=== PATIENT | female | born 1960 | race Caucasian/White ===

== ENCOUNTER → 2017-03-02 | Outpatient (CLI) | payer OTHER | END | disposition home or self-care (01) | LOC: LABPAT 14:20 | PROVIDERS: ATTEND Orthopaedic Surgery | DX: Z01.812 Encounter for preprocedural laboratory examination (principal) | CPT/HCPCS: 87070 ==

== ENCOUNTER → 2017-03-08 | Outpatient (CLI) | payer OTHER ==
--- NOTE | 2017-03-08 08:37 | XR ---
EXAMINATION TYPE: XR chest 2V DATE OF EXAM: 03/08/2017 COMPARISON: Prior chest x-ray September 21, 2015. HISTORY: Presurgical study, history of asthma. TECHNIQUE: Frontal and lateral views of the chest are obtained. FINDINGS: There is no focal air space opacity, pleural effusion, or pneumothorax seen. The cardiac silhouette size is within normal limits. The osseous structures are intact. Cholecystectomy clips a re redemonstrated. IMPRESSION: No acute cardiopulmonary process currently.
== END | disposition home or self-care (01) ==
LOC: RADXRMAIN 08:12
PROVIDERS: ATTEND Physician Assistant Medical
DX: Z01.818 Encounter for other preprocedural examination (principal); J45.909 Unspecified asthma, uncomplicated
CPT/HCPCS: 71020

== ENCOUNTER 2017-03-21 06:23 | Inpatient (IN) | payer OTHER ==
[2017-03-14 11:12] VITALS: BMI 30.4
--- NOTE | 2017-03-20 10:14 | HP ---
HISTORY AND PHYSICAL CHIEF COMPLAINT: Left knee pain. 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 She denies any specific injury. She is having giving way sensations along with pain at night. She is having difficult time with stairs and normal activities. She has tried medications and injections with only partial temporary relief. PAST MEDICAL HISTORY: Significant for asthma, migraines, hypothyroidism, diabetes. PAST SURGICAL HISTORY: Significant for previous right ankle surgery, hysterectomy, and tonsillectomy. She notes she did have transient atrial fibrillation after her previous surgery. CURRENT ALLERGIES: Ultram and ibuprofen. ALLERGIES: She notes sensitivity to codeine, however, no sandi drug allergies. FAMILY HISTORY: Significant for dementia. SOCIAL HISTORY: Negative for current tobacco or alcohol use. REVIEW OF SYSTEMS: Sixteen point review of systems otherwise reviewed and is noncontributory. PHYSICAL EXAMINATION: On examination, the patient is approximately 5 feet 11 inches, 221 pounds of endomorphic habitus. HEENT exam is nonfocal. Neck is supple. She has painless passive motion of her left hip. Straight leg raise is negative. Active motion left knee -8 to 120 degrees of flexion. She has a moderate effusion. She is tender about the medial joint line. Collaterals are stable, Donna's negative, Rafy's is equivocal. She has genu varum alignment. Her distal neurovascular exam appears to be intact in the left lower extremity. IMPRESSION: 1. Left knee severe medial and patellofemoral compartment osteoarthrosis. 2. Increased body mass index. 3. Dsh-mrxfkog-makimhtdh diabetes. 4. History of atrial fibrillation. RECOMMENDATIONS: I talked to the patient at length regarding her treatment options. At this point, she is having persistent pain secondary to osteoarthrosis despite conservative measures. After a thorough discussion, she opts to proceed with surgery. We will plan to proceed with left total knee arthroplasty. Risks and benefits were discussed at length in layman's terms. We will institute DVT prophylaxis postoperatively. The patient underwent preoperative medical evaluation by Dr. Geraldine Bates. MMJOVANNAL / ANALIN: [id number] /
[~2017-03-21 06:23] MED LIST: ACETAMINOPHEN TAB 500 MG TAB PO ONE; DEXAMETHASONE SOD PHOSPHATE 10 MG/ML 1 ML VIAL IV ONE; HYDROmorphone 0.5 MG/0.5 ML SYRINGE IVP PRN; MELOXICAM 7.5 MG TAB PO ONE; MIDAZOLAM 2 MG/2 ML VIAL IV PRN; ONDANSETRON 4 MG/2 ML VIAL IVP ONE; TRANEXAMIC ACID 1,000 MG in SODIUM CHLORIDE 0.9% 100 ML IVPB ONE; ceFAZolin 2 GM in SODIUM CHLORIDE 0.9% 100 ML IVPB ONE
[2017-03-21] MEDS: LACTATED RINGERS 1,000 ML IV SCH (07:07)
[2017-03-21] MEDS ORDERED: LIDOCAINE 1% 20 ML VIAL (10MG/ML) FOR IV START INTRADERMA ONE (07:07)
[2017-03-21 07:21] LABS: INR 1.1 (<1.2); Partial Thromboplastin Time 24.6 sec (22.0-30.0); Prothrombin Time 11.3 sec (9.0-12.0)
[2017-03-21] MEDS ORDERED: MIDAZOLAM 2 MG/2 ML VIAL IVP ONE (07:29)
[2017-03-21] MEDS ORDERED: SODIUM CHLORIDE 0.9% 100 ML BAG ONE (08:00)
[2017-03-21] MEDS ORDERED: fentaNYL (PF) 50 MCG/ML 2 ML AMP ONE (08:00)
[2017-03-21] MEDS ORDERED: HYDROmorphone (PF) 1 MG/ML ONE (08:00)
[2017-03-21] MEDS ORDERED: TRANEXAMIC ACID 1,000 MG/10 ML VIAL ONE (08:00)
[2017-03-21] MEDS ORDERED: PHENYLEPHRINE-0.9% NACL SYG 1 MG/10 ML SYRINGE ONE (08:00)
[2017-03-21] MEDS ORDERED: MIDAZOLAM 2 MG/2 ML VIAL ONE (08:00)
[2017-03-21] MEDS ORDERED: PROPOFOL 10 MG/ML 20 ML VIAL IV ONE (08:00)
[2017-03-21] MEDS ORDERED: ROPIVACAINE 246.25 MG, EPINEPHrine 0.5 MG, KETOROLAC 30 MG, cloNIDine HCL/PF 80 MCG, WA... MISCELLANE ONE ×5 (08:05)
[2017-03-21] MEDS ORDERED: ceFAZolin 3,000 MG in SODIUM CHLORIDE 0.9% IRRIGATIO 3,000 ML IRRIGATION ONE (08:37)
[2017-03-21] MEDS ORDERED: ROPIVACAINE 1,100 MG, SODIUM CHLORIDE 0.9% 330 ML MISCELLANE PRN ×2 (09:01)
--- NOTE | 2017-03-21 09:02 | P.ONQ ---
Anesthesiology Proc Note - PNB - Peripheral Nerve Block Performed Left Adductor Canal Indication: Acute Post-Operative Pain, Requested by physician (Dr Paulson) Sedation Type: Sedate with meaningful contact maintained Preparation: Sterile Dressing Position: Supine Catheter: Indwelling Needle Types: Other (see comment) (Neeta) Needle Size: 100mm (4") Needle Gauge: 18 Technique: Ultrasound Injectate: 0.5% Ropivacaine (see comment for volume) (20cc) Blood Aspirated: No Pain Paresthesia on Injection Noted: No Resistance on Injection: Normal Events: Uneventful and Well Tolerated
[2017-03-21] MEDS ORDERED: LACTATED RINGERS 1,000 ML IV ONE (09:12)
[2017-03-21] MEDS ORDERED: HYDROmorphone 0.5 MG/0.5 ML SYRINGE IVP PRN ×2 (09:42)
[2017-03-21] MEDS ORDERED: HYDROcodone/APAP 7.5-325MG 1 EACH TAB PO PRN (09:42)
[2017-03-21] MEDS ORDERED: NALOXONE 0.4 MG/ML 1 ML VIAL IV PRN (09:42)
[2017-03-21] MEDS ORDERED: MAGNESIUM HYDROXIDE 2,400 MG/10 ML CUP PO PRN (09:42)
[2017-03-21] MEDS ORDERED: HYDROmorphone 1 MG/ML 1 ML SYRINGE IVP PRN (09:42)
--- NOTE | 2017-03-21 10:09 | P.OP ---
Date of Procedure: 03/21/17 Preoperative Diagnosis: Left knee severe tricompartmental osteoarthrosis-primary Postoperative Diagnosis: Same Procedure(s) Performed: Left total knee arthroplasty-posterior stabilized-cemented Implants: Depuy Attune size 5 cemented femoral component, size 5 cemented tibial component , 12 mm articular surface, 32 mm cemented patellar component. This is a posterior stabilized implant. Anesthesia: regional, local, spinal Surgeon: Kike Paulson Rpg Programmer Analyst #1: Stepan Sheikh Estimated Blood Loss (ml): 50 Pathology: other (Bone fragments) Condition: stable Disposition: PACU Indications for Procedure: The patient's a 56-year-old female who presents with progressive left knee pain secondary to osteoarthrosis despite extensive conservative measures. A discussion of the risks and benefits of operative intervention versus continued conservative measures was made with patient. She opted to proceed with surgery. Operative risks to include infection, neurovascular injury, development of blood clots, possible component loosening, possible component failure need for subsequent procedures was discussed. Informed consent was obtained. Operative Findings: As below Description of Procedure: The patient was brought to the operating room, and after induction of spinal anesthesia the left lower extremity was prepped and draped in normal fashion. The tourniquet was inflated to 270 mmHg. A longitudinal incision extending 3 finger breaths above the superior pole of the patella extending to the medial aspect of the tibial tubercle was then made. The skin and subcutaneous tissues were divided sharply. A medial parapatellar arthrotomy was performed. The medial soft tissues to include the superficial and deep portions the medial collateral ligament as well as the medial hamstring tendons were elevated subperiosteally. The proximal medial tibial osteophytes were carefully removed. The patella was everted. A portion of the retropatellar fat pad was excised sharply. The knee was then flexed. The anterior cruciate ligament was sacrificed. A starting hole was made in the distal femur 1 cm anterior to the posterior cruciate ligament. An intramedullary femoral guide was gently inserted planning on 5 valgus distal cut with 9 mm distal resection. The cutting block was pinned in place. The distal cut was then made. The posterior referencing sizing guide was utilized. I felt size 5 was most appropriate. 3 of external rotation was built into the system and verified off the trans-epicondylar axis and the posterior condyles. The cutting block was pinned in place. The anterior, posterior, and chamfer cuts were then made. The bone fragments were removed. The box guide was utilized for the intercondylar notch. A reciprocating saw was used to remove the bone block. A size 5 femoral components placed and was fully seated. There is good anterior to posterior and medial to lateral fit. The distal peg holes were drilled. The trial component was removed. Attention was then paid towards preparing the proximal tibia. An extra medullary guide was utilized in line with the tibial shaft and second metatarsal distally. I planned on 2 mm resection from the medial compartment. The cutting block was pinned in place. The proximal tibial cut was then made. The bone was removed in one fragment. The tibia sized most appropriately at a size 5. The remnants of the medial lateral menisci were excised at the capsular junction with electrocautery. The trial tibial and femoral components were placed along with a 12 mm articular surface. I was able to obtain full flexion and extension with good stability with varus and valgus stress throughout the arc of motion. After several flexion and extension cycles, the tibial rotation was marked with electrocautery in line with the medial one third of the tibial tubercle. Attention was then paid towards preparing the patella. A patella reamer was utilized taking down to 14 mm of bone stock. A good flush cut was made. The patella sized most appropriately at a size 32. The peg holes were drilled. The trial components placed. The knee was taken through range of motion. I had good patellofemoral tracking with no hands technique. The trial components were then removed. The tibia was prepared in the appropriate rotation with appropriate drill and keel punch. The posterior osteophytes off the distal femur were carefully removed with a curved osteotome. The flexion and extension gaps were checked and felt to be symmetric. The posterior soft tissues were injected with ropivacaine. The bony surfaces were prepared with pulsatile lavage and dried. I did make several additional drill holes in the proximal medial tibia to facilitate cement interdigitation. The tibial component was then cemented in placed and was fully seated. Excess cement was removed. The femoral component was cemented place and was fully seated. Excess cement was removed. The trial 12 mm articular surface was placed and the knee was put in full extension. The patellar component cemented in place. After the cement had sufficiently hardened, the knee was again taken through range of motion and felt to be stable in flexion and extension with varus and valgus stress. The trial 12 mm articular surface was removed and the final one inserted. This was fully seated. Care was taken to avoid any soft tissue interposition. Pulsatile lavage was again utilized. A medial parapatellar arthrotomy was closed with #2 Ethibond suture. A deep drain was placed exiting laterally. The tourniquet was deflated with less than 70 minutes total tourniquet time. The subcutaneous tissues reapproximated interrupted 2-0 Vicryl sutures. The skin was reapproximated with coby. A sterile dressing was applied. The patient was awoken from sedation and transferred to the recovery room in good condition. Blood loss less than 50 mL. No complications were incurred. Sponge and needle counts were correct in the case.
--- NOTE | 2017-03-21 10:32 | XR ---
EXAMINATION TYPE: XR knee limited LT DATE OF EXAM: 03/21/2017 COMPARISON: NONE TECHNIQUE: Two views submitted HISTORY: Post op FINDINGS: There is a prosthetic knee in near anatomic alignment. There is soft tissue edema and emphysema. Bowden rgical drain noted. Surgical coby seen. IMPRESSION: 1. Postoperative change. Appears in near-anatomic alignment
[2017-03-21] MEDS ORDERED: ALBUTEROL NEBULIZED 2.5 MG/3 ML INHALATION PRN (14:38)
[2017-03-21] MEDS: HYDROcodone/APAP 7.5-325MG 1 EACH TAB PO PRN ×2 (14:50→22:18)
--- NOTE | 2017-03-21 16:23 | P.CONS ---
History of Present Illness - Reason for Consult COPD - History of Present Illness patient was admitted for left knee arthroplasty. Patient postsurgically clinically doing well without any chest pain, nausea, vomiting, abdominal pain, fever, dysuria patient still has Callahan catheter in place patient's just underwent surgery today morning. Patient does have history of COPD without any complaints of shortness of breath. Review of Systems REVIEW OF SYSTEMS: CONSTITUTIONAL: No fever, no malaise, no fatigue. HEENT: No recent visual problems or hearing problems. Denied any sore throat. CARDIOVASCULAR: No chest pain, orthopnea, PND, no palpitations, no syncope. PULMONARY: No shortness of breath, no cough, no hemoptysis. GASTROINTESTINAL: No diarrhea, no nausea, no vomiting, no abdominal pain. Normoactive bowel sounds. NEUROLOGICAL: No headaches, no weakness, no numbness. HEMATOLOGICAL: Denies any bleeding or petechiae. GENITOURINARY: Denies any burning micturition, frequency, or urgency. MUSCULOSKELETAL/RHEUMATOLOGICAL: Denies any joint pain, swelling, or any muscle pain. ENDOCRINE: Denies any polyuria or polydipsia. The rest of the 14-point review of systems is negative. Past Medical History Past Medical History: Atrial Fibrillation, Asthma, GERD/Reflux, Osteoarthritis ( OA), Pneumonia, Rheumatoid Arthritis (RA) Additional Past Medical History / Comment(s): hx seizures as infant, A-Fib "comes and goes" no rx for, History of Any Multi-Drug Resistant Organisms: None Reported Past Surgical History: Adenoidectomy, Cholecystectomy, Heart Catheterization, Hysterectomy, Orthopedic Surgery, Tonsillectomy Additional Past Surgical History / Comment(s): Rt ankle surgery, Past Anesthesia/Blood Transfusion Reactions: Previous Problems w/ Anesthesia Additional Past Anesthesia/Blood Transfusion Reaction / Comm: "ANESTHESIA SENDS ME INTO AFIB" with ankle surgery at [facility] Smoking Status: Never smoker - Past Family History Mother Family Medical History: No Reported History Father History Unknown: Yes Medications and Allergies Home Medications Medication Instructions Recorded Confirmed Type Albuterol Nebulized [Ventolin 2.5 mg INHALATION RT-Q6H PRN 09/15/15 03/21/17 History Nebulized] Budesonide-Formot 160-4.5 Mcg 1 puff INHALATION RT-BID PRN 03/14/17 03/21/17 History [Symbicort 160-4.5 Mcg Inhaler] Esomeprazole Magnesium [NexIUM 20 mg PO QAM 03/14/17 03/21/17 History 24Hr] Ibuprofen [Motrin] 800 mg PO DAILY PRN 03/14/17 03/21/17 History Rivaroxaban [Xarelto] 10 mg PO DAILY #12 tab 03/21/17 Rx Allergies Allergy/AdvReac Type Severity Reaction Status Date / Time adhesive tape Allergy red skin Verified 03/21/17 14:01 codeine Allergy NUMBNESS Verified 03/21/17 14:01 of arms latex Allergy red skin Verified 03/21/17 14:01 Physical Exam Vitals: Vital Signs Temp Pulse Resp BP Pulse Ox 03/21/17 15:00 97.9 F 93 16 100/67 98 03/21/17 13:05 97.7 F 79 14 102/59 95 03/21/17 12:37 93 16 107/65 99 03/21/17 12:02 87 16 110/68 98 03/21/17 11:33 89 16 112/66 96 03/21/17 11:15 89 16 112/69 96 03/21/17 11:00 82 16 113/70 98 03/21/17 10:45 84 16 107/68 95 03/21/17 10:33 86 16 108/66 100 03/21/17 10:15 86 16 104/63 98 03/21/17 10:00 97.5 F L 90 20 106/58 96 03/21/17 07:08 98.6 F 90 18 101/68 96 Intake and Output 03/21/17 03/21/17 03/21/17 06:59 14:59 22:59 Intake Total 1851 Output Total 450 Balance 1401 Intake: IV 1701 Intake, IV Titration 150 Amount Lactated Ringers 1,000 ml 150 @ 50 mls/hr IV .Q20H [facility] Rx#:[id number] Output: Urine 400 Estimated Blood Loss 50 Other: Voiding Method Indwelling Catheter PHYSICAL EXAMINATION: GENERAL: The patient is alert and oriented x3, not in any acute distress. Well developed, well nourished. HEENT: Pupils are round and equally reacting to light. EOMI. No scleral icterus. No conjunctival pallor. Normocephalic, atraumatic. No pharyngeal erythema. No thyromegaly. CARDIOVASCULAR: S1 and S2 present. No murmurs, rubs, or gallops. PULMONARY: Chest is clear to auscultation, no wheezing or crackles. ABDOMEN: Soft, nontender, nondistended, normoactive bowel sounds. No palpable organomegaly. MUSCULOSKELETAL: No joint swelling or deformity. EXTREMITIES: No cyanosis, clubbing, or pedal edema. NEUROLOGICAL: Gross neurological examination did not reveal any focal deficits. SKIN: No rashes. Assessment and Plan Plan: #1 COPD: Patient is not in acute exacerbation patient will continued on since Symbicort albuterol and ipratropium. #2 status post left knee arthroplasty: Pain management and DVT prophylaxis as per primary service. #3gastroesophageal reflux disease Will use Pepcid for that #4 rheumatoid arthritis
[2017-03-21] MEDS: traMADol 50 MG TAB PO SCH ×3 (16:27→22:14)
[2017-03-21] MEDS: ceFAZolin 2 GM in SODIUM CHLORIDE 0.9% 100 ML IVPB SCH (16:28)
[2017-03-21] MEDS: ONDANSETRON 4 MG/2 ML VIAL IVP PRN (17:44)
[2017-03-21] MEDS: SYMBICORT 160-4.5 MCG INHALER INHALATION SCH (21:49)
[2017-03-21] MEDS: SENNOSIDES-DOCUSATE SODIUM 1 EACH TAB PO SCH (22:14)
[2017-03-22] MEDS: ceFAZolin 2 GM in SODIUM CHLORIDE 0.9% 100 ML IVPB SCH (00:01)
[2017-03-22] MEDS: LACTATED RINGERS 1,000 ML IV SCH (03:57)
[2017-03-22] MEDS: HYDROcodone/APAP 7.5-325MG 1 EACH TAB PO PRN (06:19)
[2017-03-22 06:58] LABS: Basophils % (A) 0 %; CH 32.1; CHCM 34.3; Eosinophils % (A) 0 %; HCT 35.5 % (34.0-46.0); HDW 2.96; HGB 11.7 gm/dL (11.4-16.0); Luc # (Auto) 0.09; Luc % (Auto) 1; Lymphocytes # (A) 1.4 k/uL (1.0-4.8); Lymphocytes % (A) 11 %; MCH 30.9 pg (25.0-35.0); MCHC 32.9 g/dL (31.0-37.0); MCV 94.1 fL (80.0-100.0); Mean Platelet Volume 6.8; Monocytes # (A) 0.6 k/uL (0-1.0); Monocytes % (A) 5 %; Neutrophils # (A) 10.1 k/uL (1.3-7.7); Neutrophils % (A) 83 %; RBC 3.78 m/uL (3.80-5.40); RDW 13.9 % (11.5-15.5); WBC 12.1 k/uL (3.8-10.6); WBC (Perox) 13.12
[2017-03-22] MEDS: SYMBICORT 160-4.5 MCG INHALER INHALATION SCH ×2 (07:28→19:39)
[2017-03-22] MEDS: FAMOTIDINE 20 MG TAB PO SCH (07:55)
[2017-03-22] MEDS: traMADol 50 MG TAB PO SCH ×4 (07:56→22:21)
[2017-03-22] MEDS: RIVAROXABAN 10 MG TAB PO SCH (07:56)
[2017-03-22] MEDS ORDERED: ESOMEPRAZOLE MAGNESIUM 20 MG PO SCH (09:00)
[2017-03-22] MEDS: ONDANSETRON 4 MG/2 ML VIAL IVP PRN (09:11)
--- NOTE | 2017-03-22 12:22 | P.PN ---
Subjective Progress Note Date: 03/22/17 Principal diagnosis: patient seen today resting in her hospital chair. She appears comfortable. She does state she's had a little bit of nausea this morning, she did receive some IV pain medication along with oral pain medication. She did ambulate with therapy. She denies any headaches, lightheadedness, chest pain, shortness of breath, fever or chills. Objective - Vital Signs Vital signs: Vital Signs Temp 97.7 F 03/22/17 07:03 Pulse 67 03/22/17 07:03 Resp 16 03/22/17 07:03 BP 93/60 03/22/17 07:03 Pulse Ox 96 03/22/17 07:03 Intake & Output 03/21/17 03/22/17 03/22/17 18:59 06:59 18:59 Intake Total 1851 1375 Output Total 700 250 300 Balance 1151 1125 -300 Intake: IV 1701 Intake, IV Titration 150 875 Amount Lactated Ringers 1,000 ml 150 575 @ 50 mls/hr IV .Q20H [facility] Rx#:[id number] ceFAZolin 2 gm In Sodium 100 Chloride 0.9% 100 ml @ 100 mls/hr IVPB ONCE ONE Rx#:[id number] ceFAZolin 2 gm In Sodium 200 Chloride 0.9% 100 ml @ 100 mls/hr IVPB Q8HR [facility] Rx#:[id number] Oral 500 Output: Drainage 50 250 Left Knee 50 250 Urine 600 300 Uretheral (Callahan) 300 Estimated Blood Loss 50 Other: Voiding Method Indwelling Catheter Indwelling Catheter Indwelling Catheter - Exam Left lower extremity: Incision is clean, dry, and intact. [place] are in good position. There is minimal soft tissue swelling and ecchymosis surrounding the medial and lateral aspects of the incision. Calf is soft, no tenderness with palpation. Plantar flexion, dorsiflexion, EHL, FHL are intact. Sensory exam to light touch throughout the extremity is intact, dorsal pedis pulses 2+. - Labs CBC & Chem 7: 03/22/17 06:27 Labs: Abnormal Lab Results - Last 24 Hours (Table) 03/22/17 Range/Units 06:27 WBC 12.1 H (3.8-10.6) k/uL RBC 3.78 L (3.80-5.40) m/uL Neutrophils # 10.1 H (1.3-7.7) k/uL Assessment and Plan Plan: Assessment: 1. Postop day #1 status post left total knee arthroplasty Plan 1. Pain control, continues oral medication. Utilize lower dose medication at this time to help prevent nausea 2. Continue therapy and use of CPM 3. Daily dressing changes/ice and elevate 4. Encourage incentive spirometer 5. GI and DVT prophylaxis, continue Xarelto 10 mg 6. Medical recommendations 7. Discharge planning: Patient likely be discharged home tomorrow Time with Patient: Less than 30
[2017-03-22] MEDS: ACETAMINOPHEN TAB 325 MG TAB PO PRN ×2 (14:05→19:45)
[2017-03-22] MEDS: SENNOSIDES-DOCUSATE SODIUM 1 EACH TAB PO SCH (22:22)
[2017-03-23] MEDS: ACETAMINOPHEN TAB 325 MG TAB PO PRN ×6 (01:34→22:27)
[2017-03-23] MEDS: LACTATED RINGERS 1,000 ML IV SCH ×2 (07:13→13:33)
[2017-03-23] MEDS: SYMBICORT 160-4.5 MCG INHALER INHALATION SCH ×2 (07:47→19:21)
[2017-03-23] MEDS: RIVAROXABAN 10 MG TAB PO SCH (08:31)
[2017-03-23] MEDS: traMADol 50 MG TAB PO SCH ×4 (08:31→21:04)
[2017-03-23] MEDS: FAMOTIDINE 20 MG TAB PO SCH (08:31)
--- NOTE | 2017-03-23 11:06 | P.PN ---
Subjective Progress Note Date: 03/23/17 Principal diagnosis: patient seen today resting in her hospital chair. She appears comfortable. Patient states that the nausea is much improved today. She denies any headaches , lightheadedness, chest pain, shortness of breath, fever or chills. Objective - Vital Signs Vital signs: Vital Signs Temp 98.3 F 03/23/17 07:00 Pulse 88 03/23/17 07:00 Resp 16 03/23/17 07:00 BP 98/59 03/23/17 07:00 Pulse Ox 90 L 03/23/17 07:00 Intake & Output 03/22/17 03/23/17 03/23/17 18:59 06:59 18:59 Intake Total 1380 1840 Output Total 700 900 Balance 680 940 Intake: Intake, IV Titration 900 400 Amount Lactated Ringers 1,000 ml 900 400 @ 50 mls/hr IV .Q20H [facility] Rx#:[id number] Oral 480 1440 Output: Urine 700 900 Uretheral (Callahan) 300 Other: Voiding Method Toilet Toilet # Voids 1 2 - Exam Left lower extremity: Incision is clean, dry, and intact. [place] are in good position. There is minimal soft tissue swelling and ecchymosis surrounding the medial and lateral aspects of the incision. Calf is soft, no tenderness with palpation. Plantar flexion, dorsiflexion, EHL, FHL are intact. Sensory exam to light touch throughout the extremity is intact, dorsal pedis pulses 2+. - Labs CBC & Chem 7: 03/22/17 06:27 Assessment and Plan Plan: Assessment: 1. Postop day #2 status post left total knee arthroplasty Plan 1. Pain control, continue current regimen 2. Continue therapy and use of CPM 3. Daily dressing changes/ice and elevate 4. Encourage incentive spirometer 5. GI and DVT prophylaxis, continue Xarelto 10 mg 6. Medical recommendations 7. Discharge planning: we'll discharge home tomorrow Time with Patient: Less than 30
--- NOTE | 2017-03-23 17:15 | XR ---
EXAMINATION TYPE: XR chest 1V DATE OF EXAM: 03/23/2017 HISTORY: sob. REFERENCE: Previous study dated 03/08/2017. FINDINGS: There is atelectatic change in the right midlung. Lungs otherwise clear. Pleural spaces are clear. The heart is not enlarged. IMPRESSION: PLATELIKE ATELECTASIS, RIGHT MIDLUNG.
[2017-03-23] MEDS: SENNOSIDES-DOCUSATE SODIUM 1 EACH TAB PO SCH (21:05)
[2017-03-23 22:13] VITALS: RESP 17
[2017-03-24] MEDS: ACETAMINOPHEN TAB 325 MG TAB PO PRN ×2 (03:35→06:35)
[2017-03-24 07:07] VITALS: BP 108/66; PULSE 78; TEMP 97
[2017-03-24 07:19] LABS: Basophils % (A) 1 %; CH 31.4; CHCM 33.1; Eosinophils # (A) 0.1 k/uL (0-0.7); Eosinophils % (A) 2 %; HCT 36.7 % (34.0-46.0); HDW 3.07; HGB 12.1 gm/dL (11.4-16.0); Luc # (Auto) 0.18; Luc % (Auto) 2; Lymphocytes % (A) 25 %; MCH 31.6 pg (25.0-35.0); MCHC 33.1 g/dL (31.0-37.0); MCV 95.7 fL (80.0-100.0); Mean Platelet Volume 6.5; Monocytes # (A) 0.6 k/uL (0-1.0); Monocytes % (A) 7 %; Neutrophils # (A) 5.3 k/uL (1.3-7.7); Neutrophils % (A) 64 %; RBC 3.84 m/uL (3.80-5.40); RDW 13.7 % (11.5-15.5); WBC 8.3 k/uL (3.8-10.6)
[2017-03-24] MEDS: SYMBICORT 160-4.5 MCG INHALER INHALATION SCH (07:49)
--- NOTE | 2017-03-24 08:10 | P.PN ---
Subjective Progress Note Date: 03/24/17 Principal diagnosis: Status post left total knee arthroplasty patient seen today resting in her hospital chair. She appears comfortable. Patient states that the nausea is much improved today. She denies any headaches , lightheadedness, chest pain, shortness of breath, fever or chills Objective - Vital Signs Vital signs: Vital Signs Temp 97.0 F L 03/24/17 07:06 Pulse 78 03/24/17 07:06 Resp 17 03/24/17 07:09 BP 108/66 03/24/17 07:06 Pulse Ox 97 03/24/17 07:06 Intake & Output 03/23/17 03/24/17 03/24/17 18:59 06:59 18:59 Intake Total 237 250 Output Total 600 Balance 237 -350 Intake: Oral 237 250 Output: Urine 600 Other: Voiding Method Toilet Toilet # Voids 1 1 - Exam Left lower extremity: Incision is clean, dry, and intact. [place] are in good position. There is minimal soft tissue swelling and ecchymosis surrounding the medial and lateral aspects of the incision. Calf is soft, no tenderness with palpation. Plantar flexion, dorsiflexion, EHL, FHL are intact. Sensory exam to light touch throughout the extremity is intact, dorsal pedis pulses 2+. - Labs CBC & Chem 7: 03/24/17 06:53 Assessment and Plan Plan: Assessment: 1. Postop day #3 status post left total knee arthroplasty Plan 1. Pain control, continue current regimen 2. Continue therapy and use of CPM 3. Daily dressing changes/ice and elevate 4. Encourage incentive spirometer 5. GI and DVT prophylaxis, continue Xarelto 10 mg 6. Medical recommendations 7. Discharge planning: Patient will be discharged home today Time with Patient: Less than 30
[2017-03-24] MEDS: traMADol 50 MG TAB PO SCH (08:12)
[2017-03-24] MEDS: LACTATED RINGERS 1,000 ML IV SCH (08:13)
[2017-03-24] MEDS: FAMOTIDINE 20 MG TAB PO SCH (08:13)
[2017-03-24] MEDS: RIVAROXABAN 10 MG TAB PO SCH (08:13)
--- NOTE | 2017-03-24 08:14 | P.DS ---
Providers Date of admission: 03/21/17 06:23 Expected date of discharge: 03/24/17 Attending physician: Kike Paulson Consults: 03/21/17 09:42 Consult Physician Routine Consulting Provider: Blaine Perez Consult Reason/Comments: Medical Management Do you want consulting provider notified?: Yes Primary care physician: Geraldine Bates [facility] Course: Date of admission: 03/21/2017 Date of discharge: 03/24/2017 Admission diagnosis: Status post left total knee arthroplasty Discharge diagnosis: Same Attending physician: Dr. Paulson Surgical procedures: Left total knee arthroplasty Brief history: Patient is a 56-year-old female with a history of with progressive primary left knee osteoarthritis. At this point patient has failed conservative treatment measures and has opted to proceed with a elective left total knee arthroplasty. Hospital course: Details of patient's surgery can be found in operative report. Patient tolerated the procedure well and was subsequently transported to orthopedic floor. Patient's orthopeidc and medical care was provided daily. Patient had daily laboratory tests performed for evaluation of overall blood counts. Patient had daily physical therapy to include strengthening range of motion as well as education with walker ambulation. [Patient had daily CPM usage as part of their physical therapy program.] Patient was treated with [ Xarelto] for their postoperative DVT prophylaxis during their inpatient stay. Patient was noted to have a relatively uneventful postoperative course. Patient reported satisfactory pain control with oral pain medications by postoperative day 0. Patient showed satisfactory progress with physical therapy. Patient moved steadily through the program and had no difficulty meeting the goals by postoperative day 3. Given patient's otherwise satisfactory course and having met physical therapy goals, plan is to discharge patient rehab on postoperative day 3. Discharge condition/disposition: Patient will be discharged [home] in stable condition. Discharge medications: Instructions are given on resumption of patient's normal daily medications per primary care recommendation, in addition patient will be prescribed tramadol 50 mg, Tylenol 650 mg, Pepcid 20 mg, Colace 100mg Discharge instructions: 1. Wound care and infection precautions, [keep incision dry and covered while showering], no lotions, creams, moisturizers. No soaking, tubs, pools, hottubs. Do not scrub over the incision. 2. Weight-bear [as tolerated] with walker / cane until follow-up. 3. Ice and elevate when necessary. Do not exceed 20 minutes per hour with ice pack. 4. Utilize compression sleeve until seen at first follow up appointment. 5. Visiting nursing care. 6. Home physical therapy [including home CPM]. 7. Pain meds and anticoagulants per prescription. 8. Pain medication has potential to cause constipation. Increase oral fluid and fiber intake. Contact primary care provider if you have not had a bowel movement within 48 hours after discharge 9. No anti-inflammatory medication until discussed at first post operative visit, this including Motrin, Aleve, Mobic, Diclofenac. 10. Follow up in office at 2 weeks postop with Eric Sheikh PA-C 11. Follow up with your primary care doctor 7-10 days after discharge. 12. Contact [facility] with any questions, . Procedures: Left total knee arthroplasty Patient Condition at Discharge: Good Plan - Discharge Summary New Discharge Prescriptions: New Rivaroxaban [Xarelto] 10 mg PO DAILY #12 tab No Action Albuterol Nebulized [Ventolin Nebulized] 2.5 mg INHALATION RT-Q6H PRN PRN Reason: Shortness Of Breath Budesonide-Formot 160-4.5 Mcg [Symbicort 160-4.5 Mcg Inhaler] 1 puff INHALATION RT-BID PRN PRN Reason: Shortness Of Breath Ibuprofen [Motrin] 800 mg PO DAILY PRN PRN Reason: Pain Esomeprazole Magnesium [NexIUM 24Hr] 20 mg PO QAM Discharge Medication List Albuterol Nebulized [Ventolin Nebulized] 2.5 mg INHALATION RT-Q6H PRN 09/15/15 [ History] Budesonide-Formot 160-4.5 Mcg [Symbicort 160-4.5 Mcg Inhaler] 1 puff INHALATION RT-BID PRN 03/14/17 [History] Esomeprazole Magnesium [NexIUM 24Hr] 20 mg PO QAM 03/14/17 [History] Rivaroxaban [Xarelto] 10 mg PO DAILY #12 tab 03/21/17 [Rx] Follow up Appointment(s)/Referral(s): No[facility], [NON-STAFF] - Stepan Sheikh, PAC [PHYSICIAN JEWELRY INSPECTOR] - 2 Weeks Activity/Diet/Wound Care/Special Instructions: CPM Through [facility] [phone]. Orthopedic Discharge Instructions: 1. Wound care and infection precautions, keep incision dry and covered while showering, no lotions, creams, moisturizers. No soaking, pools, hot tubs. Do not scrub over incision. 2. Weight-bear as tolerated with walker / cane until follow-up. 3. Ice and elevate when necessary. Do not exceed 20 minutes per hour with ice pack. 4. Utilize compression sleeve until seen at first follow up appointment. 5. Visiting nursing care. 6. Home physical therapy including home CPM. 7. Pain meds and anticoagulants per prescription. 8. Pain medication has potential to cause constipation. Increase oral fluid and fiber intake. Contact primary care provider if you have not had a bowel movement within 48 hours after discharge. 9. No anti-inflammatory medication until discussed at first post operative visit, this including Motrin, Aleve, Mobic, Diclofenac. 10. Follow up in office at 2 weeks postop with Eric Sheikh PA-C 11. Follow up with your primary care doctor 7-10 days after discharge. 12. Contact [facility] with any questions, . Discharge Disposition: HOME WITH HOME HEALTH SERVICES
--- NOTE | 2017-03-24 15:30 | P.PN ---
Subjective Patient is clinically doing well and is being discharged patient is medically stable to discharged. Objective - Vital Signs Vital signs: Vital Signs Temp 97.0 F L 03/24/17 07:06 Pulse 78 03/24/17 07:06 Resp 17 03/24/17 07:09 BP 108/66 03/24/17 07:06 Pulse Ox 97 03/24/17 07:06 Intake & Output 03/23/17 03/24/17 03/24/17 18:59 06:59 18:59 Intake Total 237 250 480 Output Total 600 Balance 237 -350 480 Intake: Oral 237 250 480 Output: Urine 600 Other: Voiding Method Toilet Toilet # Voids 1 1 1 - Exam PHYSICAL EXAMINATION: GENERAL: The patient is alert and oriented x3, not in any acute distress. Well developed, well nourished. HEENT: Pupils are round and equally reacting to light. EOMI. No scleral icterus. No conjunctival pallor. Normocephalic, atraumatic. No pharyngeal erythema. No thyromegaly. CARDIOVASCULAR: S1 and S2 present. No murmurs, rubs, or gallops. PULMONARY: Chest is clear to auscultation, no wheezing or crackles. ABDOMEN: Soft, nontender, nondistended, normoactive bowel sounds. No palpable organomegaly. MUSCULOSKELETAL: No joint swelling or deformity. EXTREMITIES: No cyanosis, clubbing, or pedal edema. NEUROLOGICAL: Gross neurological examination did not reveal any focal deficits. SKIN: No rashes. - Labs CBC & Chem 7: 03/24/17 06:53 Assessment and Plan Plan: #1 COPD: Patient is not in acute exacerbation patient will continued on since Symbicort albuterol and ipratropium. #2 status post left knee arthroplasty: Pain management as per primary service and patient is on anti-correlation for DVT prophylaxis no further recommendations for medicine perspective. #3gastroesophageal reflux disease Will use Pepcid for that #4 rheumatoid arthritis
== END 2017-03-24 12:00 | disposition home health service (06) | DRG 470 ==
LOC: 2ORMAIN 06:23 → EDSTATUS 08:00 → 3SUR 12:35
PROVIDERS: ADMIT Orthopaedic Surgery; ATTEND Orthopaedic Surgery
PROC: 0SRD0J9 Replacement of Left Knee Joint with Synthetic Substitute, Cemented, Open Approach (ICD-10-PCS; principal; 2017-03-21 08:00)
DX: M17.12 Unilateral primary osteoarthritis, left knee (principal); M06.9 Rheumatoid arthritis, unspecified; I48.91 Unspecified atrial fibrillation; E03.9 Hypothyroidism, unspecified; E11.9 Type 2 diabetes mellitus without complications; J44.9 Chronic obstructive pulmonary disease, unspecified; K21.9 Gastro-esophageal reflux disease without esophagitis; Z79.01 Long term (current) use of anticoagulants; Z79.51 Long term (current) use of inhaled steroids; Z79.84 Long term (current) use of oral hypoglycemic drugs; Z91.040 Latex allergy status; Z88.5 Allergy status to narcotic agent; Z88.6 Allergy status to analgesic agent; M21.162 Varus deformity, not elsewhere classified, left knee
CPT/HCPCS: 71010; 85025; 85610; 85730; 88300; 94640

== ENCOUNTER → 2022-09-07 | Outpatient (CLI) | payer OTHER ==
--- NOTE | 2022-09-07 11:19 | CT ---
EXAMINATION TYPE: CT angio chest DATE OF EXAM: 09/07/2022 COMPARISON: CTA chest September 15, 2015. Same day outside chest x-ray. HISTORY: PE. Shortness of breath. CT DLP: 329.9 mGycm. Automated Exposure Control for Dose Reduction was Utilized. CONTRAST: CTA scan of the thorax is performed with IV Contrast, patient injected with 70 mL of Isovue 370, pulm onary embolism protocol. MIP Images are created on CT scanner and reviewed. FINDINGS: LUNGS: There is dependent atelectasis. No suspicious focal consolidation. No pleural effusion or pneu mothorax. Slightly elevated right hemidiaphragm. MEDIASTINUM: There is suboptimal bolus but no convincing evidence for central pulmonary embolism. Mos t dense contrast is seen in SVC. There is some contrast opacification of the thoracic aorta without a neurysm or dissection. Main pulmonary artery measures 2.9 cm in diameter axial image 53. There are no greater than 1 cm hilar or mediastinal lymph nodes. No cardiomegaly or pericardial effusion is see n. OTHER: Dextroconvex scoliosis in the thoracic spine is present. Cholecystectomy clips are seen. IMPRESSION: Suboptimal study without central pulmonary embolism. Cannot entirely exclude smaller segm ental and subsegmental PE on this exam. No suspicious acute pulmonary process.
== END | disposition home or self-care (01) ==
LOC: RADCTMAIN 10:10
PROVIDERS: ATTEND Internal Medicine
DX: R06.02 Shortness of breath (principal)
CPT/HCPCS: 71275; Q9967

== ENCOUNTER → 2022-09-14 | Outpatient (CLI) | payer OTHER ==
--- NOTE | 2022-09-14 09:56 | CA ---
Transthoracic Echo Report Name: Ana Mcqueen Age: 62 Gender: F : 1960 Exam Date: 09/14/2022 08:37 Exam Location: [place] [facility] Ht (in): 71 Wt (lb): 223 Ordering Physician: Tucker Marley MD Attending/Referring Phys: Tucker Marley MD Drier Tender Tg Valles SHAMIR Procedure CPT: Indications: J98.4, I48.0 Cardiac Hx: Technical Quality: Fair Contrast 1: Total Dose (mL): Contrast 2: Total Dose (mL): MEASUREMENTS (Male / Female) Normal Values 2D ECHO LV Diastolic Diameter PLAX 3.7 cm 4.2 - 5.9 / 3.9 - 5.3 cm LV Systolic Diameter PLAX 2.4 cm IVS Diastolic Thickness 1.5 cm 0.6 - 1.0 / 0.6 - 0.9 cm LVPW Diastolic Thickness 1.5 cm 0.6 - 1.0 / 0.6 - 0.9 cm LV Relative Wall Thickness 0.8 RV Internal Dim ED PLAX 2.8 cm LA Volume 25.3 cm??? 18 - 58 / 22 - 52 cm??? M-MODE Aortic Root Diameter MM 3.6 cm LA Systolic Diameter MM 2.5 cm LA Ao Ratio MM 0.7 AV Cusp Separation MM 1.9 cm DOPPLER AV Peak Velocity 96.7 cm/s AV Peak Gradient 3.7 mmHg AV Mean Velocity 76.4 cm/s AV Mean Gradient 2.5 mmHg AV Velocity Time Integral 20.9 cm LVOT Peak Velocity 77.6 cm/s LVOT Peak Gradient 2.4 mmHg LVOT Velocity Time Integral 16.1 cm MV Area PHT 6.2 cm??? Mitral E Point Velocity 77.7 cm/s Mitral A Point Velocity 0.7 cm/s Mitral E to A Ratio 115.9 MV Deceleration Time 122.8 ms TR Peak Velocity 186.2 cm/s TR Peak Gradient 13.9 mmHg FINDINGS Left Ventricle Moderately increased left ventricular wall thickness. Normal left ventricular systolic function with no obvious regional wall motion abnormalities. Left ventricular ejection fraction is estimated at 55-60 %. Left ventricular cavity size normal. Right Ventricle Normal right ventricular size and function. Right ventricular systolic pressure within normal limits. Right Atrium Normal right atrial size. Left Atrium Normal left atrial size. Mitral Valve Structurally normal mitral valve. Mild mitral annular calcification. Trace to mild mitral regurgitation. Aortic Valve No aortic valve stenosis or regurgitation.trileaflet aortic valve. Tricuspid Valve Structurally normal tricuspid valve. Mild tricuspid regurgitation. Pulmonic Valve Trace pulmonic regurgitation. Pericardium No pericardial effusion. Aorta Normal size aortic root and proximal ascending aorta. CONCLUSIONS Moderate increased left ventricular wall thickness Left ventricular ejection fraction 55-60% Mild mitral annular calcification Trace to mild mitral regurgitation Mild tricuspid regurgitation Previewed by: Dr. Shoaib Patton DO (Electronically Signed) Final Date: 14 September 2022 09:55
--- NOTE | 2022-09-14 10:15 | FL ---
Fluoroscopy for sniff test. INDICATION: Short of breath FINDINGS: Fluoroscopy time: 22 seconds. DAP: 1-2.5 mGycm^2 Images obtained: 0. Real-time observation was performed. With quiet breathing there is normal excursion of the left diaph ragm. Another peer to be some diminished excursion of the right diaphragm. With sniffing, there is paradoxical motion of the right diaphragm. The 07/14/2011 sniff test is reviewed, this appears to be an interval change. IMPRESSIONS: 1. Paradoxical motion of the right diaphragm can be compatible with right diaphragmatic paralysis.
== END | disposition home or self-care (01) ==
LOC: RADECHMAIN 08:08
PROVIDERS: ATTEND Internal Medicine
DX: I36.1 Nonrheumatic tricuspid (valve) insufficiency (principal); I34.0 Nonrheumatic mitral (valve) insufficiency; I34.81 Nonrheumatic mitral (valve) annulus calcification; J98.4 Other disorders of lung; I48.0 Paroxysmal atrial fibrillation
CPT/HCPCS: 76000; 93306

== ENCOUNTER → 2022-10-19 | Outpatient (CLI) | payer OTHER ==
--- NOTE | 2022-10-19 12:07 | XR ---
EXAMINATION TYPE: XR chest 2V DATE OF EXAM: 10/19/2022 COMPARISON: 09/07/2022 HISTORY: 62-year-old female Z09, postop lung surgery on September 10, 2022 TECHNIQUE: Frontal and lateral views FINDINGS: Heart normal size. Aorta and pulmonary vasculature within normal limits. The degree of asymmetric dino vation right hemidiaphragm may be slightly improved. There is a new small right pleural effusion. The re seems to be some foci of air either along the lateral lower right chest wall or lateral breast tis crow and this should be correlated clinically. IMPRESSION: 1. Persistent asymmetrically elevated right hemidiaphragm though slightly improved from 09/07/2022. Ne w small right pleural effusion. 2. Several foci of soft tissue air projecting along the lateral aspect of the lower right chest or la teral right breast. Correlate as to etiology. Particularly to exclude soft tissue infection.
== END | disposition home or self-care (01) ==
LOC: RADXRMAIN 07:01
PROVIDERS: ATTEND Physician Assistant
DX: Z09 Encounter for follow-up examination after completed treatment for conditions other than malignant neoplasm (principal); J90 Pleural effusion, not elsewhere classified; J98.6 Disorders of diaphragm
CPT/HCPCS: 71046

== ENCOUNTER → 2023-12-04 | Outpatient (CLI) | payer MEDICARE ==
--- NOTE | 2023-12-04 13:37 | FL ---
Fluoroscopy INDICATION: Pain FINDINGS: There is elevation of the right diaphragm in relation to the left diaphragm. There is diminished excu rsion of the right compared to the left with quiet breathing. Paradoxical motion not evident on quiet breathing. Some paradoxical motion with rapid sniffing may be present. Fluoroscopy time: 60 seconds. Total dose area product (DAP) in uGy*m?, mGy*cm? (or similar): 380.22 Images obtained: 94. IMPRESSION: 1. There may be some mild paradoxical motion with sniffing. With quiet breathing there is diminished excursion on the right without paradoxical motion.
== END | disposition home or self-care (01) ==
LOC: RADUSWWP 09:43
PROVIDERS: ATTEND Internal Medicine
DX: J98.6 Disorders of diaphragm (principal)
CPT/HCPCS: 76000